=== PATIENT | male | born 1980 | race Hispanic/Latino ===

== ENCOUNTER 2017-04-26 14:31 | Emergency (ER) | payer SELFPAY ==
[~2017-04-26] VITALS: Ht 165.1 cm; Wt 68.0 kg
[2017-04-26 15:12] LABS: HEMATOCRIT 42.4 % (39.0-50.0); HEMOGLOBIN 14.5 g/dl (14.0-18.0); IMMATURE GRANULOCYTES 0.5 % (0.0-1.0); MEAN CORPUSCULAR HGB 34.2 pG CALC (26.0-32.0); MEAN CORPUSCULAR HGB CONC 34.2 g/L CALC (32.0-36.0); NEUT# 8.57 thou/uL (1.82-7.42); RED BLOOD COUNT 4.24 mill/uL (4.70-6.10); RED CELL DISTRI WIDTH 11.9 % (11.5-15.5)
[2017-04-26 15:31] LABS: ALKALINE PHOSPHATASE 94 u/l (38-126); ANION GAP 28 (6-22 (CALC)); BILIRUBIN, TOTAL 1.4 mg/dL (0.0-1.4); BUN 30 mg/dL (9-20); BUN/CREATININE RATIO 8 (12-20 (CALC)); CALCIUM 11.2 mg/dL (8.4-10.2); CARBON DIOXIDE 25 mmol/l (22-30); CHLORIDE 91 mmol/l (95-108); CPK 262 u/l (52-200); CREATININE 3.7 mg/dL (0.7-1.3); GFR 19 ML/MIN (>=60 (CALC)); GFR FOR AFR.AMER. 23 ML/MIN (>=60 (CALC)); GLUCOSE 196 mg/dL (75-110); POTASSIUM 4.1 mmol/l (3.5-5.1); SGOT/AST 134 u/l (17-59); SGPT/ALT 189 u/l (21-72); SODIUM 140 mmol/l (137-146)
[2017-04-26 15:36] LABS: ALBUMIN > 6.0 g/dL (3.2-5.0)
[2017-04-26 16:49] LABS: URINE BLOOD DIPSTICK LARGE (NEGATIVE); URINE CLARITY CLEAR; URINE COLOR YELLOW; URINE GLUCOSE - DIPSTICK NEGATIVE (NEGATIVE); URINE KETONE TRACE mg/dL (NEGATIVE); URINE LEUK ESTERASE NEGATIVE (NEGATIVE); URINE NITRITE - DIPSTICK NEGATIVE (Negative); URINE PH 5.5 (4.5-8.0); URINE PROTEIN - DIPSTICK >=300 mg/dL (NEG-TRACE); URINE SPECIFIC GRAVITY >=1.030; URINE UROBILINOGEN - DIPSTICK 0.2 E.U./dL (0.2)
[2017-04-26 16:50] LABS: URINE BILIRUBIN - DIPSTICK SMALL (NEGATIVE)
[2017-04-26 16:58] LABS: URINE MUCUS FEW hpf (NONE-FEW); URINE RBC 25-50 RBC/hpf (0-5); URINE SQUAMOUS EPITHELIAL CELL FEW EPI/hpf (0-FEW)
[2017-04-26 18:18] VITALS: BP 114/64
== END 2017-04-26 18:18 | disposition short-term general hospital (02) | DRG 684 ==
LOC: ED 14:31
PROVIDERS: Emergency Medicine
DX: N17.9 Acute kidney failure, unspecified (principal); M62.838 Other muscle spasm; X30.XXXA Exposure to excessive natural heat, initial encounter; Y93.89 Activity, other specified; Y92.89 Other specified places as the place of occurrence of the external cause